=== PATIENT | male | born 1955 | race Hispanic/Latino ===

== ENCOUNTER 2018-01-21 09:32 | Day surgery (SDC) | payer BC ==
[2018-01-13 08:47] VITALS: BMI 37.0
[2018-01-21] MEDS ORDERED: Propofol 10 mg/ml Inj (20 ML) ONE (11:16)
[2018-01-21] MEDS ORDERED: Sodium Chloride 0.9% 1,000 ML IV SCH (11:45)
[2018-01-21 12:24] VITALS: O2SAT 98
[2018-01-21 15:00] VITALS: BP 129/72; PULSE 71; RESP 14; TEMP 97.5
== END 2018-01-21 14:35 | disposition home or self-care (01) ==
LOC: ENDO 09:32
PROVIDERS: ATTEND Internal Medicine Gastroenterology
DX: K63.5 Polyp of colon (principal); K64.8 Other hemorrhoids; K59.00 Constipation, unspecified
CPT/HCPCS: 45380; 82948; 88305; J2001; J2704; J7040 ×2